=== PATIENT | female | born 1980 | race Native Hawaiian/Other Pacific Islander ===

== ENCOUNTER 2022-05-20 11:06 | Outpatient (CLI) | payer OTHER | END 2022-05-20 20:20 | disposition home or self-care (01) | LOC: RAD 11:06 | PROVIDERS: ATTEND Physician Assistant | DX: M54.59 Other low back pain (principal); M54.2 Cervicalgia ==

== ENCOUNTER 2022-10-30 14:46 | Outpatient (CLI) | payer OTHER | END 2022-10-30 19:20 | disposition home or self-care (01) | LOC: MRI 14:46 | PROVIDERS: ATTEND Physician Assistant | DX: M47.812 Spondylosis without myelopathy or radiculopathy, cervical region (principal) ==